=== PATIENT | male | born 1950 | race Caucasian/White ===

== ENCOUNTER 2022-05-30 18:59 | Emergency (ER) | payer OTHER ==
[~2022-05-30] VITALS: Ht 177.8 cm; Wt 133.4 kg
[2022-05-30 19:29] VITALS: BP_SYST 179
--- NOTE | 2022-05-30 19:30 | NUR ---
Rt.received sitting havinglabs drawn. Right hand with edema to fingers and hand with large hard hematoma to anterior surface. No apparent trauma noted. No ecchymosis or open areas. Pt. reports cannot move fingers or stretch hand. Awaiting further orders from .
--- NOTE | 2022-05-30 19:33 | NUR ---
Patient to ER bed 05 to gown for evaluation. Side rails up. Report given to Alfredo.
[2022-05-30 19:54] LABS: BASOPHILS # (AUTO) 0.1 K/uL (0.0-0.2); BASOPHILS % (AUTO) 0.5 % (0.0-2.0); EOSINOPHILS # (AUTO) 0.2 K/uL (0.0-0.4); EOSINOPHILS % (AUTO) 1.4 % (0.0-4.0); HEMATOCRIT 45.1 % (36-54); LYMPHOCYTES # (AUTO) 2.7 K/uL (1.0-5.5); LYMPHOCYTES % (AUTO) 22.5 % (20.5-51.5); MEAN CORPUSCULAR HEMOGLOBIN 30 pg (27-31); MEAN CORPUSCULAR HGB CONC 33 % (32-36); MEAN CORPUSCULAR VOLUME 89 fL (79.0-98.0); MONOCYTES # (AUTO) 0.9 K/uL (0.0-1.0); MONOCYTES % (AUTO) 7.3 % (1.7-9.3); NEUTROPHILS # (AUTO) 8.1 K/uL (1.8-7.7); NEUTROPHILS % (AUTO) 68.3 % (40.0-70.0); PLATELET COUNT (AUTO) 243 K/uL (130-430); RED BLOOD CELL COUNT(AUTO) 5.06 MIL/uL (4.2-6.2); RED CELL DISTRIBUTION WIDTH 15.4 % (9.0-15.0); WHITE BLOOD COUNT (AUTO) 11.8 K/uL (4.8-10.8)
[2022-05-30 20:15] LABS: CALCIUM 9.3 mg/dL (8.4-11.0); CREATININE 0.97 mg/dL (0.55-1.30)
[2022-05-30 20:19] LABS: ALBUMIN 3.9 g/dL (3.4-4.8); C-REACTIVE PROTEIN QUANT 0.9 mg/dL (0-0.5); TOTAL BILIRUBIN 0.7 mg/dL (0.0-1.0)
[2022-05-30] MEDS ORDERED: IBUP-1971 PO (21:10)
[2022-05-30] MEDS ORDERED: HYDR-3917 PO (21:18)
[2022-05-30] MEDS ORDERED: CLIN-142 PO (21:18)
[2022-05-30 21:30] VITALS: BP_SYST 179
--- NOTE | 2022-05-30 22:05 | NUR ---
Volar cast applied to right hand per MD. Pt.tolerated w/o incident.
== END 2022-05-30 22:31 | disposition home or self-care (01) ==
LOC: SED 18:59
DX: L03.113 Cellulitis of right upper limb (principal); J44.9 Chronic obstructive pulmonary disease, unspecified; E11.9 Type 2 diabetes mellitus without complications; I11.0 Hypertensive heart disease with heart failure; I50.9 Heart failure, unspecified; Z88.6 Allergy status to analgesic agent; Z79.899 Other long term (current) drug therapy
CPT/HCPCS: 36415; 80053; 83605; 85025; 86140; 93971; 99285